=== PATIENT | male | born 1935 | race Caucasian/White ===

== ENCOUNTER → 2017-05-10 | Outpatient (CLI) | payer MEDICARE, BC ==
[~2017-05-10] MED LIST: FISH300C2; MVI
[2017-05-10 13:46] LABS: ALBUMIN 3.5 GM/DL (3.4-5.0); AST (GOT) 21 U/L (15-37); BICARBONATE 26.6 MEQ/L (21.0-32.0); BLOOD UREA NITROGEN 14 MG/DL (7-18); CALCIUM 9.2 MG/DL (8.5-10.1); CHLORIDE 106 MEQ/L (98-107); CREATININE 1.02 MG/DL (0.60-1.30); GLOMERULAR FILTRATION RATE 70 ML/MIN (>89); GLUCOSE,FASTING 88 MG/DL (74-99); SODIUM (NA) 141 MEQ/L (136-145)
[2017-05-10 13:58] LABS: ALKALINE PHOSPHATASE 64 U/L (45-117); ALT (GPT) 28 U/L (12-78); TOTAL BILIRUBIN ADULT 0.5 MG/DL (0.2-1.0); TOTAL PROTEIN 7.5 GM/DL (6.4-8.2)
[2017-05-10 14:04] LABS: HEMOGLOBIN A1C 6.1 % (4.3-6.0)
== END ==
LOC: PLAB 08:47
PROVIDERS: ATTEND Allergy & Immunology
DX: E78.2 Mixed hyperlipidemia (principal); R94.6 Abnormal results of thyroid function studies; E08.65 Diabetes mellitus due to underlying condition with hyperglycemia; Z12.5 Encounter for screening for malignant neoplasm of prostate
CPT/HCPCS: 36415; 80053; 83036; 84443; G0103

== ENCOUNTER 2017-06-22 20:19 | Emergency (ER) | payer MEDICARE, BC ==
[~2017-06-22] VITALS: Ht 177.8 cm; Wt 104.3 kg
[2017-06-22 20:34] VITALS: BP 136/98; PULSE 130; RESP 18; TEMP 98.2; O2SAT 96
[2017-06-22 21:00] VITALS: BP 155/88; PULSE 130; RESP 18; O2SAT 96
[2017-06-22] MEDS ORDERED: SODIUM CHLOR 0.9% 1000 ML INJ 1,000 ML IV SCH (21:30)
[2017-06-22] MEDS ORDERED: SODIUM CHLORIDE 0.9% FLUSH 10 ML FLUSH IV FLUSH PRN (21:30)
[2017-06-22] MEDS ORDERED: DILTIAZEM HCL 25 MG/5 ML VIAL IV PUSH ONE (21:30)
--- NOTE | 2017-06-22 21:36 | EKG ---
Date Performed: 06/22/2017 Time Performed: 20:52:12 PTAGE: 81 years EKG: SINUS TACHYCARDIA WITH OCCASIONAL VENTRICULAR PREMATURE COMPLEXES NONSPECIFIC ST DEPRESSION ABNORMAL RHYTHM ECG PREVIOUS TRACING : 07/05/2006 06.55 Compared to previous tracing, heart rate has increased. DOCTOR: Pal Duffy Interpretating Date/Time 06/22/2017 21:34:53
[2017-06-22 21:39] VITALS: PULSE 129; RESP 18; O2SAT 95
[2017-06-22 21:51] LABS: BASOPHIL # 0.1 TH/MM3 (0-0.2); BASOPHIL % 0.6 % (0.0-2.0); EOSINOPHIL # 0.1 TH/MM3 (0-0.4); EOSINOPHIL % 1.4 % (0.0-4.0); HEMATOCRIT 44.1 % (39.0-51.0); HEMOGLOBIN 14.5 GM/DL (13.0-17.0); LYMPH % 25.3 % (9.0-44.0); LYMPHOCYTE # 2.4 TH/MM3 (1.0-4.8); MEAN CELL VOLUME 88.3 FL (80.0-100.0); MEAN CORPUSCULAR HGB CONC 32.8 % (32.0-36.0); MEAN PLATELET VOLUME 9.1 FL (7.0-11.0); MONO % 10.4 % (0.0-8.0); NEUT % 62.3 % (16.0-70.0); PLATELET COUNT 230 TH/MM3 (150-450); RED BLOOD COUNT 4.99 MIL/MM3 (4.50-5.90); RED CELL DISTRIBUTION WIDTH 12.8 % (11.6-17.2); WHITE BLOOD COUNT 9.6 TH/MM3 (4.0-11.0)
--- NOTE | 2017-06-22 21:53 | RADRPT ---
EXAM DATE/TIME: 06/22/2017 21:38 [facility] COMPARISON: No previous studies available for comparison. INDICATIONS : Palpitations. MEDICAL HISTORY : Hypercholesterolemia. Chronic obstructive pulmonary disease. Hiatal hernia. 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 Mild basilar atelectasis or scarring. The cardiomediastinal contours are unremarkable. Osseous structures are intact. CONCLUSION: 1. Mild basilar atelectasis. Tortuous aorta. No pneumothorax. Jose Ware MD on June 22, 2017 at 21:50 Board Certified Radiologist. This report was verified electronically.
[2017-06-22 21:59] LABS: CHLORIDE 110 MEQ/L (98-107); SODIUM (NA) 141 MEQ/L (136-145)
[2017-06-22 22:00] VITALS: BP 118/78; PULSE 129; RESP 18; O2SAT 95
[2017-06-22 22:02] LABS: ALBUMIN 3.4 GM/DL (3.4-5.0); CALCIUM 8.7 MG/DL (8.5-10.1); GLUCOSE,RANDOM 108 MG/DL (74-106)
[2017-06-22 22:03] LABS: BLOOD UREA NITROGEN 24 MG/DL (7-18)
[2017-06-22 22:05] LABS: ALT (GPT) 29 U/L (12-78); AST (GOT) 18 U/L (15-37)
[2017-06-22 22:06] LABS: GLOMERULAR FILTRATION RATE 53 ML/MIN (>89)
[2017-06-22 22:07] LABS: TOTAL BILIRUBIN ADULT 0.6 MG/DL (0.2-1.0); TOTAL PROTEIN 7.5 GM/DL (6.4-8.2)
[2017-06-22 22:08] LABS: ALKALINE PHOSPHATASE 61 U/L (45-117)
[2017-06-22 22:09] LABS: INTERNATIONAL NORMALIZED RATIO 1.2 RATIO; PROTHROMBIN TIME - PATIENT 12.2 SEC (9.8-11.6)
[2017-06-22 22:10] LABS: TROPONIN I 0.02 NG/ML (0.02-0.05)
[2017-06-22 22:13] LABS: D-DIMER 0.39 MG/L FEU (0.00-0.50)
[2017-06-22] MEDS ORDERED: DILTIAZEM HCL 25 MG/5 ML VIAL IV ONE (22:15)
[2017-06-22 22:17] VITALS: BP 107/59; PULSE 86; RESP 18; O2SAT 94
--- NOTE | 2017-06-22 22:32 | PD ---
HPI Chief Complaint: Pain: Acute or Chronic Time Seen by Provider: 21:01 Travel History International Travel<30 days: No Contact w/Intl Traveler<30days: No Traveled to known affect area: No History of Present Illness HPI 81-year-old male complains of left upper back pain. Patient states that the pain is aching pain constant pain localized left upper back. Patient denies any pain radiation. Patient states the pain started this morning. Patient denies any chest pain or shortness of breath. Patient denies abdominal pain. Patient denies any focal weakness or numbness of extremity. Patient has history hypertension. Patient's was on lisinopril and started having persistent cough. Lisinopril was stopped a month ago and patient was put on new medication for blood pressure that he does not know the name of. Patient denies any history of diabetes. Patient has history of hyperlipidemia and was put on Statin in the past. Statin was stopped because of muscle pain. Patient is a nonsmoker. Patient states that he has been taking [id number] energy pills recently. Patient went to the local urgent care and was referred to the ED for evaluation. PFSH Past Medical History Blood Disorders: No Cancer: No Cardiovascular Problems: Yes High Cholesterol: Yes COPD: Yes Diminished Hearing: No Endocrine: No Gastrointestinal Disorders: Yes GERD: Yes Genitourinary: No Hiatal Hernia: Yes Immune Disorder: No Musculoskeletal: Yes Neurologic: No Psychiatric: No Reproductive: No Respiratory: No ?: Not Past Surgical History AICD: No Arteriovenous Shunt: No Insulin Pump: No Joint Replacement: No Pacemaker: No Tympanostomy Tube: Yes Other Surgery: Yes (STOMACH FATTY TUMOR) Social History Alcohol Use: No Tobacco Use: No Substance Use: No Allergies-Medications (Allergen,Severity, Reaction): Coded Allergies: atorvastatin (Verified Allergy, Severe, 06/22/17) Reported Meds & Prescriptions Reported Meds & Active Scripts Active Review of Systems General / Constitutional: No: Fever Eyes: No: Visual changes HENT: No: Headaches Cardiovascular: No: Chest Pain or Discomfort Respiratory: No: Shortness of Breath Gastrointestinal: No: Abdominal Pain Genitourinary: No: Dysuria Musculoskeletal: Positive: Pain Skin: No Rash Neurologic: No: Weakness Psychiatric: No: Depression Endocrine: No: Polydipsia Hematologic/Lymphatic: No: Easy Bruising Physical Exam Narrative GENERAL: Well-nourished, well-developed patient. SKIN: Focused skin assessment warm/dry. HEAD: Normocephalic. EYES: No scleral icterus. No injection or drainage. NECK: Supple, trachea midline. No JVD or lymphadenopathy. CARDIOVASCULAR: Tachycardia rate and rhythm without murmurs, gallops, or rubs. RESPIRATORY: Breath sounds equal bilaterally. No accessory muscle use. GASTROINTESTINAL: Abdomen soft, non-tender, nondistended. MUSCULOSKELETAL: No cyanosis, or edema. BACK: Nontender without obvious deformity. No CVA tenderness. Neurologic exam normal. Data Data Last Documented VS Vital Signs Date Time Temp Pulse Resp B/P (MAP) Pulse Ox O2 Delivery O2 Flow Rate FiO2 06/22/17 22:52 92 18 124/75 (91) 94 Room Air 06/22/17 20:34 98.2 Orders Orders Electrocardiogram (06/22/17 21:16) Complete Blood Count With Diff (06/22/17 21:16) Comprehensive Metabolic Panel (06/22/17 21:16) Creatine Kinase (Cpk) (06/22/17 21:16) Troponin I (06/22/17 21:16) Prothrombin Time / Inr (Pt) (06/22/17 21:16) Act Partial Throm Time (Ptt) (06/22/17 21:16) D-Dimer (06/22/17 21:16) Thyroid Stimulating Hormone (06/22/17 21:16) Chest, Single Ap (06/22/17 21:16) Iv Access Insert/Monitor (06/22/17 21:16) Ecg Monitoring (06/22/17 21:16) Oximetry (06/22/17 21:16) Ct Pulmonary Angiogram (06/22/17 21:16) Sodium Chlor 0.9% 1000 Ml Inj (Ns 1000 M (06/22/17 21:30) Diltiazem Inj (Cardizem Inj) (06/22/17 21:30) Sodium Chloride 0.9% Flush (Ns Flush) (06/22/17 21:30) Diltiazem Inj (Cardizem Inj) (06/22/17 22:15) Diltiazem Cd (Cardizem Cd) (06/22/17 23:15) Apixaban (Eliquis) (06/22/17 23:30) Labs Laboratory Tests Test 06/22/17 21:30 White Blood Count 9.6 TH/MM3 Red Blood Count 4.99 MIL/MM3 Hemoglobin 14.5 GM/DL Hematocrit 44.1 % Mean Corpuscular Volume 88.3 FL Mean Corpuscular Hemoglobin 29.0 PG Mean Corpuscular Hemoglobin Concent 32.8 % Red Cell Distribution Width 12.8 % Platelet Count 230 TH/MM3 Mean Platelet Volume 9.1 FL Neutrophils (%) (Auto) 62.3 % Lymphocytes (%) (Auto) 25.3 % Monocytes (%) (Auto) 10.4 % Eosinophils (%) (Auto) 1.4 % Basophils (%) (Auto) 0.6 % Neutrophils # (Auto) 6.0 TH/MM3 Lymphocytes # (Auto) 2.4 TH/MM3 Monocytes # (Auto) 1.0 TH/MM3 Eosinophils # (Auto) 0.1 TH/MM3 Basophils # (Auto) 0.1 TH/MM3 CBC Comment DIFF FINAL Differential Comment Prothrombin Time 12.2 SEC Prothromb Time International Ratio 1.2 RATIO Activated Partial Thromboplast Time 28.2 SEC D-Dimer Quantitative (PE/DVT) 0.39 MG/L FEU Blood Urea Nitrogen 24 MG/DL Creatinine 1.30 MG/DL Random Glucose 108 MG/DL Total Protein 7.5 GM/DL Albumin 3.4 GM/DL Calcium Level 8.7 MG/DL Alkaline Phosphatase 61 U/L Aspartate Amino Transf (AST/SGOT) 18 U/L Alanine Aminotransferase (ALT/SGPT) 29 U/L Total Bilirubin 0.6 MG/DL Sodium Level 141 MEQ/L Potassium Level 4.0 MEQ/L Chloride Level 110 MEQ/L Carbon Dioxide Level 22.0 MEQ/L Anion Gap 9 MEQ/L Estimat Glomerular Filtration Rate 53 ML/MIN Total Creatine Kinase 121 U/L Troponin I 0.02 NG/ML Thyroid Stimulating Hormone 3rd Gen 2.140 uIU/ML MDM Medical Decision Making Medical Screen Exam Complete: Yes Emergency Medical Condition: Yes Interpretation(s) Last Impressions Chest X-Ray 06/22/172115 Signed Impressions: Service Date/Time: Thursday, June 22, 2017 21:38 - CONCLUSION: 1. Mild basilar atelectasis. Tortuous aorta. No pneumothorax. Jose Ware MD 22:29 PM. CBC within normal limit. CMP with BUN at 24. Cardiac enzymes are normal. Differential Diagnosis Differential diagnosis including sinus tachycardia, PACs, PVCs, atrial flutter, atrial fibrillation. Narrative Course 81-year-old male with left upper back pain and tachycardia. EKG shows sinus tachycardia with occasional PVCs. Rate 132. Cardizem 10 mg IV given. The rate slowed down and EKG now shows atrial flutter with rate 83. Normal saline solution 1 25 cc an hour. I spoke with Dr. Duffy. Patient was advised to be admitted and to be anticoagulated. I spoke with patient and his . Patient refuses admission. Patient was warned of possible stroke and . Cardizem CD 120 mg by mouth given. Eliquis 5 mg by mouth given. Patient wants to leave AMA. Diagnosis Primary Impression: Atrial flutter with rapid ventricular response Patient Instructions: General Instructions Additional Instructions: Patient leaving AMA. Advised patient to take medications as directed and follow -up with levi maker. Med/Other Pt SpecificInfo: Prescription(s) given Scripts Diltiazem CD 24 HR (Cardizem CD 24 HR) 120 Mg Caper 120 MG PO DAILY, #30 CAP 0 Refills Prov: Remy Rodriguez MD 06/22/17 Apixaban (Eliquis) 5 Mg Tab 5 MG PO BID for Blood Clot Prevention, #60 TAB 0 Refills Prov: Remy Rodriguez MD 06/22/17 Disposition: 07 AGAINST MEDICAL ADVICE Condition: Stable Remy Rodriguez MD Jun 22, 2017 22:32
[2017-06-22 22:52] VITALS: BP 124/75; PULSE 92; RESP 18; O2SAT 94
[2017-06-22] MEDS ORDERED: DILTIAZEM-CD 120 MG CAP ER PO ONE (23:15)
[2017-06-22] MEDS ORDERED: APIX5TAB PO (23:20)
[2017-06-22] MEDS ORDERED: CARD120C4 PO (23:20)
[2017-06-22] MEDS ORDERED: APIXABAN 5 MG TABLET PO ONE (23:30)
[2017-06-22] MEDS ORDERED: IOHEXOL 350 MG/ML 10 ML VIAL (for RAD DIAG) IVCONTRAST ONE (23:30)
--- NOTE | 2017-06-22 23:51 | RADRPT ---
EXAM DATE/TIME: 06/22/2017 23:06 [facility] COMPARISON: No previous studies available for comparison. INDICATIONS : Back pain IV CONTRAST: 80 cc Omnipaque 350 (iohexol) IV RADIATION DOSE: 20.29 CTDIvol (mGy) ; Patient body habitus MEDICAL HISTORY : Chronic obstructive pulmonary disease. Gastroesophageal reflux disease. Hernia, hiatal. SURGICAL HISTORY : None. Fatty tumor removed from abdomen ENCOUNTER: Initial ACUITY: 1 day PAIN SCALE: 4/10 LOCATION: chest TECHNIQUE: Volumetric scanning of the chest was performed using a pulmonary embolism protocol MIP images were re constructed. Using automated exposure control and adjustment of the mA and/or kV according to patien t size, radiation dose was kept as low as reasonably achievable to obtain optimal diagnostic quality images. DICOM format image data is available electronically for review and comparison. Follow-up recommendations for detected pulmonary nodules are based at a minimum on nodule size and pa tient risk factors according to Fleischner Society Guidelines. FINDINGS: PULMONARY ARTERIES: No filling defects are seen in the pulmonary arteries through the segmental level. LUNGS: Mild paraseptal and centrilobular pulmonary parenchymal emphysema with upper lobe predominance. Mild groundglass opacity of the lower lobes bilaterally along with platelike atelectasis of the lower lobe s. Volume loss and moderate atelectasis noted at the medial aspect of the lingula PLEURAE: No evidence of pleural effusion or thickening. MEDIASTINUM: Coronary artery calcifications noted. No enlarged lymph nodes. A thoracic aorta demonstrates moderate calcification and tortuosity. Diameter is within normal limits. MUSCULOSKELETAL: Moderate severity bony degenerative findings of the thoracic spine. MISCELLANEOUS: Small hiatal hernia and multiple colonic diverticula. Upper abdomen otherwise within normal limits. CONCLUSION: 1. No evidence of pulmonary malaise. 2. Mild pulmonary emphysema. 3. Mild bilateral atelectasis most prominent in the lingula. 4. Coronary artery calcifications. Cleveland Sal MD on June 22, 2017 at 23:44 Board Certified Radiologist. This report was verified electronically.
[2017-06-23 00:17] VITALS: BP 146/99
--- NOTE | 2017-06-23 10:45 | EKG ---
Date Performed: 06/22/2017 Time Performed: 22:21:14 PTAGE: 81 years EKG: ATRIAL FLUTTER WITH VARIABLE AV CONDUCTION BORDERLINE LEFT AXIS DEVIATION NONSPECIFIC T WAV E CHANGES PREVIOUS TRACING : 06/22/2017 20.52 Compared to previous tracing, atrial flutter waves ar e now evident, heart rate has slowed. DOCTOR: Pal Duffy Interpretating Date/Time 06/23/2017 10:44:04
== END 2017-06-23 00:41 | disposition left against medical advice (07) ==
LOC: PHED 20:19
DX: I48.92 Unspecified atrial flutter (principal); E78.00 Pure hypercholesterolemia, unspecified; J44.9 Chronic obstructive pulmonary disease, unspecified; I10 Essential (primary) hypertension; I25.10 Atherosclerotic heart disease of native coronary artery without angina pectoris; K21.9 Gastro-esophageal reflux disease without esophagitis; K44.9 Diaphragmatic hernia without obstruction or gangrene
CPT/HCPCS: 71010; 71275; 80053; 82550; 84443; 84484; 85025; 85379; 85610; 85730; 93005; 96361; 96374; 99285; J7030; Q9967

== ENCOUNTER → 2017-08-13 | Outpatient (CLI) | payer MEDICARE, BC ==
[~2017-08-13] MED LIST changes: +APIX5TAB PO; +CARD120C4 PO; -FISH300C2; -MVI
[2017-08-13 10:05] LABS: ALBUMIN 3.4 GM/DL (3.4-5.0); BICARBONATE 22.2 MEQ/L (21.0-32.0); BLOOD UREA NITROGEN 19 MG/DL (7-18); CALCIUM 9.3 MG/DL (8.5-10.1); CHLORIDE 110 MEQ/L (98-107); GLOMERULAR FILTRATION RATE 58 ML/MIN (>89); GLUCOSE,FASTING 100 MG/DL (74-99); SODIUM (NA) 142 MEQ/L (136-145)
[2017-08-13 10:11] LABS: ALKALINE PHOSPHATASE 62 U/L (45-117); ALT (GPT) 29 U/L (12-78); AST (GOT) 17 U/L (15-37); LUTEINIZING HORMONE 3.3 mIU/mL (1.2-10.6); TOTAL BILIRUBIN ADULT 0.3 MG/DL (0.2-1.0); TOTAL PROTEIN 7.3 GM/DL (6.4-8.2)
[2017-08-13 16:09] LABS: HEMOGLOBIN A1C 6.2 % (4.3-6.0)
[2017-08-15 15:43] LABS: FREE TESTOSTERONE 4.95 ng/dL (2.88-10.5)
== END ==
LOC: PLAB 07:06
PROVIDERS: ATTEND Allergy & Immunology
DX: E78.2 Mixed hyperlipidemia (principal); E23.6 Other disorders of pituitary gland; I10 Essential (primary) hypertension; E08.65 Diabetes mellitus due to underlying condition with hyperglycemia; C61 Malignant neoplasm of prostate; Z12.5 Encounter for screening for malignant neoplasm of prostate
CPT/HCPCS: 36415; 80053; 82670; 83002; 83036; 84153; 84403; 84410